=== PATIENT | male | born 1985 | race Caucasian/White ===

== ENCOUNTER 2017-10-27 11:59 | Observation (INO) | payer BC ==
[2017-10-27] VITALS (8 sets, daily range): BP systolic 138–169; BP diastolic 81–104; PULSE 94–127; RESP 18–24; TEMP 98.4–98.8; O2SAT 99–100
[~2017-10-27] VITALS: Ht 162.6 cm; Wt 80.0 kg
[2017-10-27] MEDS ORDERED: LORazepam 2 MG/ML VIAL IV PUSH ONE ×2 (12:30→14:30)
[2017-10-27] MEDS ORDERED: SODIUM CHLORIDE 0.9% FLUSH 10 ML FLUSH IVF PRN (12:30)
[2017-10-27] MEDS ORDERED: SODIUM CHLOR 0.9% 1000 ML INJ 1,000 ML IV SCH (12:45)
--- NOTE | 2017-10-27 13:02 | RADRPT ---
EXAM DATE/TIME: 10/27/2017 12:46 [place] COMPARISON: No previous studies available for comparison. INDICATIONS : Patient presents with shortness of breath and shortness of breath. MEDICAL HISTORY : anxiety; bundle branch block per patient SURGICAL HISTORY : None. ENCOUNTER: Initial ACUITY: 1 day PAIN SCORE: 8/10 LOCATION: Bilateral upper chest FINDINGS: A single view of the chest demonstrates the lungs to be symmetrically aerated without evidence of mas s, infiltrate or effusion. The cardiomediastinal contours are unremarkable. Osseous structures are intact. CONCLUSION: No acute disease. A Avel Bello MD on October 27, 2017 at 13:00 Board Certified Radiologist. This report was verified electronically.
[2017-10-27 13:51] LABS: ALBUMIN 4.6 GM/DL (3.4-5.0); ALKALINE PHOSPHATASE 84 U/L (45-117); ALT (GPT) 55 U/L (12-78); AST (GOT) 58 U/L (15-37); BICARBONATE 20.9 MEQ/L (21.0-32.0); BLOOD UREA NITROGEN 9 MG/DL (7-18); CALCIUM 9.2 MG/DL (8.5-10.1); CHLORIDE 104 MEQ/L (98-107); CREATININE 1.08 MG/DL (0.60-1.30); GLOMERULAR FILTRATION RATE 79 ML/MIN (>89); GLUCOSE,RANDOM 99 MG/DL (74-106); SODIUM (NA) 140 MEQ/L (136-145); TOTAL BILIRUBIN ADULT 0.5 MG/DL (0.2-1.0); TOTAL PROTEIN 8.2 GM/DL (6.4-8.2); TROPONIN I LESS THAN 0.02 NG/ML (0.02-0.05)
[2017-10-27 14:08] LABS: AUTOMATED NEUTROPHIL # 6.9 TH/MM3 (1.8-7.7); BASOPHIL % 0.2 % (0.0-2.0); EOSINOPHIL % 0.1 % (0.0-4.0); HEMATOCRIT 39.4 % (39.0-51.0); HEMOGLOBIN 14.3 GM/DL (13.0-17.0); LYMPH % 8.6 % (9.0-44.0); LYMPHOCYTE # 0.7 TH/MM3 (1.0-4.8); MEAN CELL VOLUME 90.9 FL (80.0-100.0); MEAN CORPUSCULAR HEMOGLOBIN 32.9 PG (27.0-34.0); MEAN PLATELET VOLUME 7.1 FL (7.0-11.0); MONO % 6.9 % (0.0-8.0); MONOCYTE # 0.6 TH/MM3 (0-0.9); NEUT % 84.2 % (16.0-70.0); PLATELET COUNT 257 TH/MM3 (150-450); RED BLOOD COUNT 4.33 MIL/MM3 (4.50-5.90); RED CELL DISTRIBUTION WIDTH 13.1 % (11.6-17.2); WHITE BLOOD COUNT 8.1 TH/MM3 (4.0-11.0)
[2017-10-27 14:13] LABS: MEAN CORPUSCULAR HGB CONC 36.2 % (32.0-36.0)
[2017-10-27] MEDS ORDERED: SODIUM CHLOR 0.9% 1000 ML INJ 1,000 ML IV ONE (14:30)
[2017-10-27] MEDS ORDERED: ACETAMINOPHEN 325 MG TAB PO PRN ×2 (16:45)
[2017-10-27] MEDS ORDERED: SODIUM CHLORIDE 0.9% FLUSH 10 ML FLUSH IV FLUSH PRN (16:45)
[2017-10-27] MEDS ORDERED: LORazepam 2 MG/ML VIAL IV PUSH PRN ×2 (16:45)
[2017-10-27] MEDS ORDERED: FLUMAZENIL 0.5 MG/5 ML VIAL IV PUSH PRN (16:45)
[2017-10-27] MEDS ORDERED: LORazepam 2 MG TAB PO PRN (16:45)
[2017-10-27] MEDS ORDERED: NALOXONE HCL 0.4 MG/ML AMP IV PUSH PRN (16:45)
[2017-10-27] MEDS ORDERED: LORazepam 1 MG TAB PO PRN (16:45)
--- NOTE | 2017-10-27 17:58 | PD ---
HPI Chief Complaint: Chest Pain Time Seen by Provider: 12:23 Travel History International Travel<30 days: No Contact w/Intl Traveler<30days: No Traveled to known affect area: No History of Present Illness HPI This is a 32-year-old male who has a history of heavy alcohol use who presents to the emergency department with palpitations and intermittent shortness of breath that started this morning. He said this morning he did not feel well, started to feel his heart racing, had some chest discomfort on the left side and felt tingly all over, constant, moderate severity. He says he drank 2 red bulls this morning and did not eat any breakfast. Additionally he has been cutting back on his alcohol use. He used to drink about a bottle of liquor a day and now is drinking about a quarter of that. [facility] Past Medical History Anxiety: Yes Past Surgical History Surgical History: No Previous Surgery Social History Alcohol Use: Yes (occassinaly ) Tobacco Use: Yes Substance Use: No Allergies-Medications (Allergen,Severity, Reaction): Coded Allergies: No Known Allergies (Unverified , 10/27/17) Reported Meds & Prescriptions Reported Meds & Active Scripts Active No Active Prescriptions or Reported Medications Review of Systems Except as stated in HPI: all other systems reviewed are Neg Physical Exam Narrative GENERAL:Well appearing, no acute distress SKIN: Focused skin assessment warm and dry. HEAD: Atraumatic. Normocephalic. EYES: Pupils equal and round. No injection or drainage. ENT: Moist mucous membranes NECK: Trachea midline. CARDIOVASCULAR: Tachycardic. No murmur appreciated. RESPIRATORY: Clear to auscultation. Breath sounds equal bilaterally. GASTROINTESTINAL: Abdomen soft, non-tender, nondistended. MUSCULOSKELETAL: No obvious deformities. NEUROLOGICAL: Awake and alert. No obvious cranial nerve deficits. Moving all extremities. PSYCHIATRIC: Appropriate mood and affect; insight and judgment normal. Data Data Last Documented VS Vital Signs Date Time Temp Pulse Resp B/P (MAP) Pulse Ox O2 Delivery O2 Flow Rate FiO2 10/27/17 15:52 120 18 145/81 (102) 100 Room Air 10/27/17 12:03 98.4 Orders Orders Electrocardiogram (10/27/17 12:30) Complete Blood Count With Diff (10/27/17 12:30) Chest, Single Ap (10/27/17 12:30) Ecg Monitoring (10/27/17 12:30) Bilateral Bp Monitoring (10/27/17 12:30) Iv Access Insert/Monitor (10/27/17 12:30) Oximetry (10/27/17 12:30) Oxygen Administration (10/27/17 12:30) Sodium Chloride 0.9% Flush (Ns Flush) (10/27/17 12:30) Lorazepam Inj (Ativan Inj) (10/27/17 12:30) Sodium Chlor 0.9% 1000 Ml Inj (Ns 1000 M (10/27/17 12:45) Comprehensive Metabolic Panel (10/27/17 12:33) Troponin I (10/27/17 12:33) Lorazepam Inj (Ativan Inj) (10/27/17 14:30) Sodium Chlor 0.9% 1000 Ml Inj (Ns 1000 M (10/27/17 14:30) Thyroid Stimulating Hormone (10/27/17 15:36) Admit Order (Ed Use Only) (10/27/17 16:01) Labs Laboratory Tests Test 10/27/17 12:35 10/27/17 13:45 Blood Urea Nitrogen 9 MG/DL Creatinine 1.08 MG/DL Random Glucose 99 MG/DL Total Protein 8.2 GM/DL Albumin 4.6 GM/DL Calcium Level 9.2 MG/DL Alkaline Phosphatase 84 U/L Aspartate Amino Transf (AST/SGOT) 58 U/L Alanine Aminotransferase (ALT/SGPT) 55 U/L Total Bilirubin 0.5 MG/DL Sodium Level 140 MEQ/L Potassium Level 3.9 MEQ/L Chloride Level 104 MEQ/L Carbon Dioxide Level 20.9 MEQ/L Anion Gap 15 MEQ/L Estimat Glomerular Filtration Rate 79 ML/MIN Troponin I LESS THAN 0.02 NG/ML Thyroid Stimulating Hormone 3rd Gen 1.080 uIU/ML White Blood Count 8.1 TH/MM3 Red Blood Count 4.33 MIL/MM3 Hemoglobin 14.3 GM/DL Hematocrit 39.4 % Mean Corpuscular Volume 90.9 FL Mean Corpuscular Hemoglobin 32.9 PG Mean Corpuscular Hemoglobin Concent 36.2 % Red Cell Distribution Width 13.1 % Platelet Count 257 TH/MM3 Mean Platelet Volume 7.1 FL Neutrophils (%) (Auto) 84.2 % Lymphocytes (%) (Auto) 8.6 % Monocytes (%) (Auto) 6.9 % Eosinophils (%) (Auto) 0.1 % Basophils (%) (Auto) 0.2 % Neutrophils # (Auto) 6.9 TH/MM3 Lymphocytes # (Auto) 0.7 TH/MM3 Monocytes # (Auto) 0.6 TH/MM3 Eosinophils # (Auto) 0.0 TH/MM3 Basophils # (Auto) 0.0 TH/MM3 CBC Comment AUTO DIFF Differential Comment AUTO DIFF CONFIRMED MDM Medical Decision Making Medical Screen Exam Complete: Yes Emergency Medical Condition: Yes Interpretation(s) EKG: Sinus tachycardia, mild conduction delay No leukocytosis Electrolytes are reassuring Troponins normal TSH is normal Chest x-ray: No acute process Differential Diagnosis Sympathomimetic toxidrome, acute alcohol withdrawal, dehydration, hyperthyroidism, panic attack, myocardial infarction Narrative Course This is a 32-year-old male who presents to the emergency department with palpitations, diaphoresis, some chest discomfort and shortness of breath. He was placed on a monitor and an IV was established. He was found to be tachycardic and hypertensive. I suspect this is related to a combination of acute alcohol withdrawal as well as stimulant use in the setting of him drinking two red bull drinks this morning. Despite 2 L of IV fluid and 4 mg of IV Ativan the patient is persistently tachycardic. I think he requires admission for IV benzodiazepines and continued IV hydration. Physician Communication Physician Communication Discussed with Dr. 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
[2017-10-27] MEDS: SODIUM CHLOR 0.9% 1000 ML INJ 1,000 ML IV SCH ×2 (18:05→23:50)
--- NOTE | 2017-10-27 19:04 | HHI.HP ---
HPI Service [facility] Primary Care Physician Non-Staff Admission Diagnosis alcohol withdrawl, stimulant use Diagnoses: Chief Complaint: Palpitations Travel History International Travel<30 Days: No Contact w/Intl Traveler <30 Da: No Traveled to Known Affected Are: No History of Present Illness The patient is a 32-year-old male with a past medical history of alcoholism who is presenting to the hospital with a fast heart rate. He says he did not have breakfast this morning. He may have had a shot of alcohol in the morning. He had 2 large red bulls. He went to work and started feeling shaky and lightheaded. He said he was seeing stars. He started to develop palpitations. He felt pulsing in his head. He said his fit bit showed a heart rate up to the 170s. He drove himself to the hospital and said he felt better when he received Ativan. He currently still feels a little wobbly. He says he has had an episode like this in the past and was told that he had a right bundle branch block and did follow-up with a heart doctor. He is concerned about his heart as he has family history of heart disease. He is trying to drink less. Review of Systems Except as stated in HPI: all other systems reviewed are Neg Past Family Social History Past Medical History Alcohol abuse Anxiety Allergies: Coded Allergies: No Known Allergies (Unverified , 10/27/17) Active Ordered Medications Current Medications Medications (Trade) Dose Ordered Sig/Jair Route Start Time Stop Time Status Last Admin (NS Flush) 2 ml UNSCH PRN IVF 10/27/17 12:30 Sodium Chloride 1,000 ml @ 100 mls/hr Q10H IV 10/27/17 16:38 10/27/17 18:05 (NS Flush) 2 ml UNSCH PRN IV FLUSH 10/27/17 16:45 (NS Flush) 2 ml BID IV FLUSH 10/27/17 21:00 (Tylenol) 650 mg Q4H PRN PO 10/27/17 16:45 (Tylenol) 650 mg Q6H PRN PO 10/27/17 16:45 (Narcan Inj) 0.4 mg UNSCH PRN IV PUSH 10/27/17 16:45 (Romazicon Inj) 0.2 mg Q1M PRN IV PUSH 10/27/17 16:45 (Ativan) 1 mg Q4H PRN PO 10/27/17 16:45 (Ativan) 2 mg Q2H PRN PO 10/27/17 16:45 (Ativan Inj) 2 mg Q1H PRN IV PUSH 10/27/17 16:45 (Ativan Inj) 2 mg Q15M PRN IV PUSH 10/27/17 16:45 Family History Atrial fibrillation Depression Alcoholism CAD Social History The patient drinks a pint of rum daily. He denies drug use. He quit smoking marijuana a few weeks ago. Physical Exam Vital Signs Vital Signs Date Time Temp Pulse Resp B/P (MAP) Pulse Ox O2 Delivery O2 Flow Rate FiO2 10/27/17 18:19 98.6 103 18 145/82 (103) 100 10/27/17 17:38 (102) 10/27/17 15:52 120 18 145/81 (102) 100 Room Air 10/27/17 12:41 (115) 10/27/17 12:41 99 Room Air 10/27/17 12:17 112 18 138/104 (115) 100 153/103 (120) 10/27/17 12:03 98.4 127 24 168/92 (117) 99 Physical Exam GENERAL:Well appearing, no acute distress SKIN: Focused skin assessment warm and dry. HEAD: Atraumatic. Normocephalic. EYES: Pupils equal and round. No injection or drainage. ENT: Moist mucous membranes NECK: Trachea midline. CARDIOVASCULAR: Tachycardic. No murmur appreciated. RESPIRATORY: Clear to auscultation. Breath sounds equal bilaterally. GASTROINTESTINAL: Abdomen soft, non-tender, nondistended. MUSCULOSKELETAL: No obvious deformities. No edema. NEUROLOGICAL: Awake and alert. No obvious cranial nerve deficits. Moving all extremities. PSYCHIATRIC: Appropriate mood and affect; insight and judgment normal. Laboratory Laboratory Tests Test 10/27/17 12:35 10/27/17 13:45 Blood Urea Nitrogen 9 Creatinine 1.08 Random Glucose 99 Total Protein 8.2 Albumin 4.6 Calcium Level 9.2 Alkaline Phosphatase 84 Aspartate Amino Transf (AST/SGOT) 58 Alanine Aminotransferase (ALT/SGPT) 55 Total Bilirubin 0.5 Sodium Level 140 Potassium Level 3.9 Chloride Level 104 Carbon Dioxide Level 20.9 Anion Gap 15 Estimat Glomerular Filtration Rate 79 Troponin I LESS THAN 0.02 Thyroid Stimulating Hormone 3rd Gen 1.080 White Blood Count 8.1 Red Blood Count 4.33 Hemoglobin 14.3 Hematocrit 39.4 Mean Corpuscular Volume 90.9 Mean Corpuscular Hemoglobin 32.9 Mean Corpuscular Hemoglobin Concent 36.2 Red Cell Distribution Width 13.1 Platelet Count 257 Mean Platelet Volume 7.1 Neutrophils (%) (Auto) 84.2 Lymphocytes (%) (Auto) 8.6 Monocytes (%) (Auto) 6.9 Eosinophils (%) (Auto) 0.1 Basophils (%) (Auto) 0.2 Neutrophils # (Auto) 6.9 Lymphocytes # (Auto) 0.7 Monocytes # (Auto) 0.6 Eosinophils # (Auto) 0.0 Basophils # (Auto) 0.0 CBC Comment AUTO DIFF Differential Comment AUTO DIFF CONFIRMED Result Diagram: 10/27/17 1345 10/27/17 1235 Imaging Last Impressions Chest X-Ray 10/27/17 1230 Signed Impressions: Service Date/Time: Friday, October 27, 2017 12:46 - CONCLUSION: No acute disease. A MD Coco Wise VTE Risk Assessment Caprini VTE Risk Assessment: Mod/High Risk (score >= 2) Caprini Risk Assessment Model Point Value = 1 Point Value = 2 Point Value = 3 Point Value = 5 Age 41-60 Minor surgery BMI > 25 kg/m2 Swollen legs Varicose veins or History of unexplained or recurrent spontaneous Oral contraceptives or hormone replacement Sepsis (< 1 month) Serious lung disease, including pneumonia (< 1 month) Abnormal pulmonary function Acute myocardial infarction Congestive heart failure (< 1 month) History of inflammatory bowel disease Medical patient at bed rest Age 61-74 Arthroscopic surgery Major open surgery (> 45 min) Laparoscopic surgery (> 45 min) Malignancy Confined to bed (> 72 hours) Immobilizing plaster cast Central venous access Age >= 75 History of VTE Family history of VTE Factor V Leiden Prothrombin [id number] Lupus anticoagulant Anticardiolipin antibodies Elevated serum homocysteine Heparin-induced thrombocytopenia Other congenital or acquired thrombophilia Stroke (< 1 month) Elective arthroplasty Hip, pelvis, or leg fracture Acute spinal cord injury (< 1 month) Prophylaxis Regimen Total Risk Factor Score Risk Level Prophylaxis Regimen 0-1 Low Early ambulation 2 Moderate Order ONE of the following: *Sequential Compression Device (SCD) *Heparin 5000 units SQ BID 3-4 Higher Order ONE of the following medications: *Heparin 5000 units SQ TID *Enoxaparin/Lovenox 40 mg SQ daily (WT < 150 kg, CrCl > 30 mL/min) *Enoxaparin/Lovenox 30 mg SQ daily (WT < 150 kg, CrCl > 10-29 mL/min) *Enoxaparin/Lovenox 30 mg SQ BID (WT < 150 kg, CrCl > 30 mL/min) AND/OR *Sequential Compression Device (SCD) 5 or more Highest Order ONE of the following medications: *Heparin 5000 units SQ TID (Preferred with Epidurals) *Enoxaparin/Lovenox 40 mg SQ daily (WT < 150 kg, CrCl > 30 mL/min) *Enoxaparin/Lovenox 30 mg SQ daily (WT < 150 kg, CrCl > 10-29 mL/min) *Enoxaparin/Lovenox 30 mg SQ BID (WT < 150 kg, CrCl > 30 mL/min) AND *Sequential Compression Device (SCD) Assessment and Plan Assessment and Plan Palpitations/tachycardia Likely secondary to alcohol use, large amounts of red bull ingested and lack of eating prior to presentation. Heart rate in the low 100s at this time. EKG with sinus tachycardia. TSH within normal limits. - Telemetry. - Trend troponins. - Alcohol cessation instruction. - Encourage by mouth intake. - IV fluids. Alcohol abuse The patient drinks a pint of rum daily. - Cessation instruction. - CIWA protocol. Hypertension Likely secondary to above and anxiety. - Anxiolytics needed. - Treatment as above. Elevated AST Likely secondary to alcohol abuse. - Cessation instruction. - Check an INR. PPx: SCDs Code Status Full Discussed Condition With Patient, Avel Mauro DO Oct 27, 2017 19:04
[2017-10-27] MEDS: SODIUM CHLORIDE 0.9% FLUSH 10 ML FLUSH IV FLUSH SCH (21:00)
[2017-10-27 22:41] LABS: INTERNATIONAL NORMALIZED RATIO 1.1 RATIO; PROTHROMBIN TIME - PATIENT 10.9 SEC (9.8-11.6)
[2017-10-28 00:02] VITALS: PULSE 84
[2017-10-28 03:58] VITALS: PULSE 81
[2017-10-28 04:09] LABS: ALBUMIN 3.2 GM/DL (3.4-5.0); ALKALINE PHOSPHATASE 65 U/L (45-117); ALT (GPT) 40 U/L (12-78); AST (GOT) 28 U/L (15-37); BICARBONATE 25.9 MEQ/L (21.0-32.0); BLOOD UREA NITROGEN 7 MG/DL (7-18); CALCIUM 7.7 MG/DL (8.5-10.1); CHLORIDE 110 MEQ/L (98-107); CREATININE 0.79 MG/DL (0.60-1.30); GLOMERULAR FILTRATION RATE 114 ML/MIN (>89); GLUCOSE,RANDOM 81 MG/DL (74-106); LIPASE 140 U/L (73-393); SODIUM (NA) 144 MEQ/L (136-145); TOTAL BILIRUBIN ADULT 0.5 MG/DL (0.2-1.0); TOTAL PROTEIN 6.2 GM/DL (6.4-8.2); TROPONIN I LESS THAN 0.02 NG/ML (0.02-0.05)
[2017-10-28 05:57] VITALS: BP 134/94; PULSE 82; RESP 18; TEMP 98.1; O2SAT 94
[2017-10-28 06:26] LABS: AUTOMATED NEUTROPHIL # 3.5 TH/MM3 (1.8-7.7); BASOPHIL % 0.3 % (0.0-2.0); EOSINOPHIL # 0.1 TH/MM3 (0-0.4); EOSINOPHIL % 1.1 % (0.0-4.0); HEMATOCRIT 39.7 % (39.0-51.0); HEMOGLOBIN 13.8 GM/DL (13.0-17.0); LYMPH % 23.2 % (9.0-44.0); LYMPHOCYTE # 1.3 TH/MM3 (1.0-4.8); MEAN CELL VOLUME 91.2 FL (80.0-100.0); MEAN CORPUSCULAR HEMOGLOBIN 31.8 PG (27.0-34.0); MEAN CORPUSCULAR HGB CONC 34.9 % (32.0-36.0); MONO % 10.5 % (0.0-8.0); MONOCYTE # 0.6 TH/MM3 (0-0.9); NEUT % 64.9 % (16.0-70.0); PLATELET COUNT 229 TH/MM3 (150-450); RED BLOOD COUNT 4.35 MIL/MM3 (4.50-5.90); RED CELL DISTRIBUTION WIDTH 13.2 % (11.6-17.2); WHITE BLOOD COUNT 5.4 TH/MM3 (4.0-11.0)
[2017-10-28 06:27] VITALS: PULSE 99; RESP 18; O2SAT 99
[2017-10-28 08:08] VITALS: BP 130/68; PULSE 68; RESP 20; TEMP 98.3; O2SAT 97
[2017-10-28 08:11] VITALS: PULSE 96
[2017-10-28] MEDS: SODIUM CHLORIDE 0.9% FLUSH 10 ML FLUSH IV FLUSH SCH (08:40)
[2017-10-28] MEDS ORDERED: MULTIVITAMIN TAB PO SCH (09:00)
[2017-10-28] MEDS ORDERED: THIAMINE HCL 100 MG TAB PO SCH (09:00)
[2017-10-28] MEDS ORDERED: FOLI400T PO (09:19)
[2017-10-28] MEDS ORDERED: THERTAB15 PO (09:19)
[2017-10-28] MEDS ORDERED: THIA100 PO (09:19)
--- NOTE | 2017-10-28 09:22 | HHI.DCPOC ---
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 Avoid second hand smoke Call the 24-hour hour crisis hotline for domestic abuse at Claudia Gaffney Oct 28, 2017 09:22
--- NOTE | 2017-10-28 14:38 | EKG ---
Date Performed: 10/28/2017 Time Performed: 05:55:08 PTAGE: 32 years EKG: Sinus rhythm POSSIBLE RIGHT VENTRICULAR CONDUCTION DELAY BORDERLINE ECG Since PREVIOUS TRACING , no significant change noted PREVIOUS TRACIN10/27/2017 12.19 DOCTOR: Ervin Yates Interpretating Date/Time 10/28/2017 14:37:14
--- NOTE | 2017-10-28 14:38 | EKG ---
Date Performed: 10/27/2017 Time Performed: 12:19:15 PTAGE: 32 years EKG: SINUS TACHYCARDIA POSSIBLE RIGHT VENTRICULAR CONDUCTION DELAY ABNORMAL RHYTHM ECG PREVIOUS TRACING : 10/28/2017 05.55.08 Since previous tracing, no significant change noted DOCTOR: Ervin Yates Interpretating Date/Time 10/28/2017 14:37:54
== END 2017-10-28 11:26 | disposition home or self-care (01) ==
LOC: NEPE 11:59 → NEDA 16:03 → NEPHCDU 17:46
PROVIDERS: ADMIT Hospitalist; ATTEND Hospitalist
DX: F10.230 Alcohol dependence with withdrawal, uncomplicated (principal); T43.605A Adverse effect of unspecified psychostimulants, initial encounter; R00.2 Palpitations; R06.02 Shortness of breath; I10 Essential (primary) hypertension; F41.9 Anxiety disorder, unspecified; Z72.0 Tobacco use; Z82.49 Family history of ischemic heart disease and other diseases of the circulatory system
CPT/HCPCS: 71045; 80053; 83690; 84443; 84484; 85025; 85610; 85730; 93005; 96361; 96374; 96376; 99285; G0378; J2060; J7030